=== PATIENT | male | born 1980 | race Caucasian/White ===

== ENCOUNTER 2019-02-28 16:19 | Emergency (ER) | payer MEDICAID, OTHER ==
[~2019-02-28] VITALS: Ht 177.8 cm; Wt 104.3 kg
[2019-02-28 16:28] VITALS: BP_SYST 130
[2019-02-28] MEDS ORDERED: ONDANSETRON HCL 4 MG/2 ML VIAL IVP ONE (16:45)
[2019-02-28] MEDS ORDERED: NACL 0.9% 1,000 ML IV ONE (16:45)
[2019-02-28 18:29] VITALS: BP_SYST 131
== END 2019-02-28 18:29 | disposition home or self-care (01) ==
LOC: SED 16:19
DX: T67.5XXA Heat exhaustion, unspecified, initial encounter (principal); E86.0 Dehydration; X30.XXXA Exposure to excessive natural heat, initial encounter; Y93.89 Activity, other specified; Y92.89 Other specified places as the place of occurrence of the external cause; Y99.8 Other external cause status
CPT/HCPCS: 93005; 96361; 96374; 99283; J2405; J7030